=== PATIENT | male | born 1995 | race Two or more races ===

== ENCOUNTER 2019-03-09 17:39 | Emergency (ER) | payer OTHER ==
[2019-03-09] MEDS ORDERED: NS 500 ML IV ONE (18:09)
--- NOTE | 2019-03-09 18:14 | EDPHY ---
H & P Time Seen by Provider: 03/09/19 17:49 HPI/ROS: CHIEF COMPLAINT: Dizziness HISTORY OF PRESENT ILLNESS: Patient is a 23-year-old male who presents emergency department with dizziness. His symptoms started a few weeks ago. His symptoms primarily occur when he stands up from sitting. However, there are times when he sitting any develops symptoms. It does not seems worse with movement. He feels unsteady more than the room spinning. He feels as though sometimes he is unsteady when he walks when he is having his symptoms. He denies any focal weakness or numbness. No headache or head trauma. No loss of hearing or tenderness. He denies any chest pain or shortness of breath. No change in the color of his stool. REVIEW OF SYSTEMS: 10 systems were reveiwed and are negative with the exception of the elements mentioned in the history of present illness. Past Medical/Surgical History: Negative Past surgical history: Negative Social history: Patient does not smoke, use drugs or alcohol. Smoking Status: Never smoked Physical Exam: Vitals noted GENERAL: Well-appearing, in no acute distress, alert. HEENT: Eyes normal to inspection, normal pharynx, no signs of dehydration. NECK: Normal, supple. RESPIRATORY: Clear to auscultation bilaterally, no rales, rhonchi or wheezing. CVS: Regular rate and rhythm, no rubs, murmurs, or gallops. ABDOMEN: Soft, nontender, nondistended, no organomegaly. BACK: Normal to inspection, no CVA tenderness. SKIN: Normal color, no rash, warm, dry. No pallor. EXTREMITIES: No pedal edema, no calf tenderness, no Homans sign or cords, no joint swelling. NEURO/PSYCH: Higher functions: Alert and Oriented x3. Normal speech and cognition. Normal mood and affect. Cranial nerves: Normal as tested. Cerebellar: Normal as tested. Good finger to nose, good [id number], normal gait. Peripheral exam: Normal motor exam. Normal sensation. Normal reflexes. Constitutional: Initial Vital Signs Temperature (C) 36.8 C 03/09/19 17:42 Heart Rate 78 03/09/19 17:42 Respiratory Rate 18 03/09/19 17:42 Blood Pressure 145/85 H 03/09/19 17:42 O2 Sat (%) 99 03/09/19 17:42 O2 Delivery Mode Room Air Allergies/Adverse Reactions: No Known Allergies Allergy (Unverified 03/09/19 17:42) Home Medications: Medication Instructions Recorded NK [No Known Home Meds] 03/09/19 Medical Decision Making ED Course/Re-evaluation: In the emergency department discussed possible etiologies with the patient. I answered all of his questions. An IV was placed. Patient given normal saline 5 mL IV for hydration. Laboratory studies and EKG were ordered. EKG shows normal sinus rhythm, normal rate, normal axis, normal intervals. There are no ST or T-wave abnormalities. EKG is normal as interpreted by me. CBC and chemistry unremarkable. Patient is not anemic. I rechecked the patient. He had no focal findings on neuro exam. Patient was given warnings. He is given follow-up with Neurology. I discussed the importance of follow-up. He will return with worsening symptoms. Differential Diagnosis: My differential includes but is not limited to ischemic CVA, hemorrhagic CVA, dissection, otitis media, labyrinthitis, dysrhythmia, ACS, anemia, dehydration, mass, malignancy - Data Points Laboratory Results: Laboratory Results 03/09/19 18:28 03/09/19 18:28 03/09/19 03/09/19 18:28 18:28 WBC 4.89 10^3/uL 10^3/uL (3.80-9.50) RBC 5.11 10^6/uL 10^6/uL (4.40-6.38) Hgb 16.4 g/dL g/dL (13.7-17.5) Hct 47.7 % % (40.0-51.0) MCV 93.3 fL fL (81.5-99.8) MCH 32.1 pg pg (27.9-34.1) MCHC 34.4 g/dL g/dL (32.4-36.7) RDW 11.0 % L % (11.5-15.2) Plt Count 273 10^3/uL 10^3/uL (150-400) MPV 9.7 fL fL (8.7-11.7) Neut % (Auto) 37.3 % L % (39.3-74.2) Lymph % (Auto) 47.4 % H % (15.0-45.0) [place] % (Auto) 13.7 % H % (4.5-13.0) Eos % (Auto) 0.8 % % (0.6-7.6) Baso % (Auto) 0.6 % % (0.3-1.7) Nucleat RBC Rel Count 0.0 % % (0.0-0.2) Absolute Neuts (auto) 1.82 10^3/uL 10^3/uL (1.70-6.50) Absolute Lymphs (auto) 2.32 10^3/uL 10^3/uL (1.00-3.00) Absolute Monos (auto) 0.67 10^3/uL 10^3/uL (0.30-0.80) Absolute Eos (auto) 0.04 10^3/uL 10^3/uL (0.03-0.40) Absolute Basos (auto) 0.03 10^3/uL 10^3/uL (0.02-0.10) Absolute Nucleated RBC 0.00 10^3/uL 10^3/uL (0-0.01) Immature Gran % 0.2 % % (0.0-1.1) Immature Gran # 0.01 10^3/uL 10^3/uL (0.00-0.10) Sodium 137 mEq/L mEq/L (135-145) Potassium 4.1 mEq/L mEq/L (3.5-5.2) Chloride 100 mEq/L mEq/L (97-110) Carbon Dioxide 26 mEq/l mEq/l (22-31) Anion Gap 11 mEq/L mEq/L (6-14) BUN 16 mg/dL mg/dL (7-23) Creatinine 1.1 mg/dL mg/dL (0.7-1.3) Estimated GFR > 60 Glucose 93 mg/dL mg/dL (70-100) Calcium 9.6 mg/dL mg/dL (8.5-10.4) Medications Given: Discontinued Medications Sodium Chloride (Ns) 500 mls @ 0 mls/hr IV EDNOW ONE; Wide Open PRN Reason: Protocol Stop: 03/09/19 18:10 Last Admin: 03/09/19 18:35 Dose: 500 mls Departure - Departure Disposition: Home, Routine, Self-Care Clinical Impression: Dizziness Condition: Good Instructions: Dizziness (ED) Additional Instructions: Return with increasing dizziness, weakness, numbness or any other concerns. You been given follow-up information for the neurologist. Call to make an appointment. Referrals: Cleve Menjivar MD [Medical Doctor] - 5-7 days, call for appt.
[2019-03-09 18:45] LABS: PLATELET COUNT 273 10^3/uL (150-400)
[2019-03-09 19:12] VITALS: BP 136/90
--- NOTE | 2019-03-09 22:34 | CPEKG ---
Test Reason : OPEN Blood Pressure : / mmHG Vent. Rate : 070 BPM Atrial Rate : 074 BPM P-R Int : 157 ms QRS Dur : 084 ms QT Int : 392 ms P-R-T Axes : 040 067 049 degrees QTc Int : 423 ms Sinus rhythm LVH by voltage ST elevation suggests acute pericarditis Confirmed by Nancy Lobo [id number] on 03/09/2019 10:33:46 PM Referred By: Nancy Lobo Confirmed By:Nancy Lobo
== END 2019-03-09 19:14 | disposition home or self-care (01) ==
DX: R42 Dizziness and giddiness (principal); E86.9 Volume depletion, unspecified